=== PATIENT | female | born 1980 | race Caucasian/White ===

== ENCOUNTER 2021-10-14 00:47 | Emergency (ER) | payer SELFPAY ==
[2021-10-14] MEDS ORDERED: Fluorescein Opthalmic Strip ONE (01:21)
[2021-10-14] MEDS ORDERED: Tetracaine 0.5% PF 4 ML BOT ONE (01:21)
== END 2021-10-14 01:32 | disposition home or self-care (01) ==
LOC: CSHERS 00:47
DX: S05.01XA Injury of conjunctiva and corneal abrasion without foreign body, right eye, initial encounter (principal); W20.8XXA Other cause of strike by thrown, projected or falling object, initial encounter
CPT/HCPCS: 99283

== ENCOUNTER 2022-10-21 19:59 | Emergency (ER) | payer SELFPAY ==
[2022-10-21] MEDS ORDERED: Ketorolac Tromethamine 30 MG/ML VIAL ONE (21:23)
== END 2022-10-21 21:46 | disposition home or self-care (01) ==
LOC: CSHERS 19:59
DX: S42.302A Unspecified fracture of shaft of humerus, left arm, initial encounter for closed fracture (principal); F17.210 Nicotine dependence, cigarettes, uncomplicated; Y08.89XA Assault by other specified means, initial encounter
CPT/HCPCS: 96372; J1885

== ENCOUNTER 2022-10-30 22:45 | Emergency (ER) | payer SELFPAY ==
[2022-10-30] MEDS ORDERED: HYDROcodone/Acetaminophen 5/325 mg Tablet ONE (23:05)
== END 2022-10-30 23:27 | disposition home or self-care (01) ==
LOC: CSHERS 22:45
DX: S42.202A Unspecified fracture of upper end of left humerus, initial encounter for closed fracture (principal); F17.200 Nicotine dependence, unspecified, uncomplicated; X58.XXXA Exposure to other specified factors, initial encounter
CPT/HCPCS: 99283